=== PATIENT | female | born 1995 | race Caucasian/White ===

== ENCOUNTER 2017-09-06 17:40 | Outpatient (CLI) | payer OTHER ==
[~2017-09-06] VITALS: Ht 170.2 cm; Wt 107.4 kg
[2017-09-06] MEDS ORDERED: PREN-93 PO (17:53)
[2017-09-06 17:54] VITALS: BP 113/55; PULSE 139; RESP 22; Ht 170.2 cm; Wt 107.4 kg
--- NOTE | 2017-09-06 18:17 | RADRPT ---
PROCEDURE: US biophysical profile. CLINICAL INDICATION: Tachycardia. TECHNIQUE: Multiple sonographic images of the uterus were obtained. The images were revi ewed on a PACS workstation. COMPARISON: No prior studies are available for comparison. FINDINGS: There is a single live intrauterine gestation. heart rate is 163 beats per minute. The position is cephalic. The placenta is anterior grade II with no abruption or previa. The MARY is 16.1 cm. (Normal = 5-20 cm.) Breathing Movement: 2 Gross Body Movement: 2 Tone: 2 Qualitative Amniotic Fluid Volume: 2 TOTAL: 8 IMPRESSION: 1. The biophysical score is 8/8. RPTAT: QQ .Lucas Keller MD, MD Date Time Electronically viewed and signed by .Lucas Keller MD, on 09/06/2017 18:16 .R/
--- NOTE | 2017-09-06 18:31 | TRIAGE ---
OB Triage Datetime Report Generated by CPN: 09/06/2017 18:31 Datetime: 09/06/2017 18:18 Stage of : OB Triage Maternal Assessment Level of Consciousness: Fully Conscious Labor Evaluation Frequency: NONE Monitor Mode: External Resting Tone [place]: Relaxed Heart Rate FHR Baseline Rate: 165 Monitor Mode: External US Variability: Moderate 6-25 bpm Accelerations: 15X15 Decelerations: None Pain Assessment Pain Scale: 0 Pain Goal: 3 Vaginal Exam Membrane Status: Intact Vaginal Bleeding: None Datetime: 09/06/2017 17:51 Assessment Type: Triage Maternal Assessment Level of Consciousness: Fully Conscious DTR's/Clonus: DTRs 2+; No Clonus Headache: Denies Blurred Vision: No Respiratory Effort: Unlabored; Regular Rhythm; Equal Expansion Breath Sounds, Left: Clear and Equal Breath Sounds, Right: Clear and Equal Nausea/Vomiting: Denies RUQ Epigastric Pain: Denies Lower Extremities Edema: None Degree: None Upper Extremities Edema: None Degree: None Facial Edema: None Fall Risk Assessment History of Falling: (0) No Secondary Diagnosis: (0) No Ambulatory Aid: (0) Bedrest/Nurse Assist IV Therapy: (0) No Gait: (0) Normal/Bedrest/Immobile Mental Status: (0) Oriented to Own Ability Fall Score: 0 Fall Risk Score Definition: No Risk: No action required Datetime: 09/06/2017 17:50 Time of Arrival: 09/06/2017 17:30 EGA: 30.1 Arrived By: Ambulatory Arrived From: Home Chief Complaint: PT HERE C/O FEVER AND DFM Movement: Decreased Contractions: Denies/Absent Rupture of Membranes: Denies Vaginal Bleeding: None Vaginal Discharge: Denies Recent Sexual Intercouse: Denies Abdominal Trauma: Not Applicable Patient Complaints: None Time Provider Notified: 09/06/2017 18:00 Provider Notified: SIRI Initial Plan: EFM/BPP Datetime: 09/06/2017 17:48 Monitor Mode: External Monitor Mode: External US
[2017-09-06] MEDS ORDERED: AMOX500C2 PO (19:48)
[2017-09-06] MEDS ORDERED: ACET500C5 PO (19:48)
[2017-09-06] MEDS ORDERED: OSLT75C PO (19:48)
[2017-09-06] MEDS ORDERED: SODI126M NASAL (19:57)
--- NOTE | 2017-09-06 21:21 | CONS ---
Date/Time of Note Date/Time of Note DATE: 09/06/17 TIME: 21:11 Consultation Date/Type/Reason Admit Date/Time September 06, 2017 OB triage consult This patient is a 21 years old 2 para 1 with a previous section. Her estimated date of confinement is November 14, 2017 which makes her 30 weeks and 1 day today. She came in complaining of fever, cough, and flu type symptoms for 2 days. On examination she is a well-nourished well-developed patient. Her general vital signs appears to be normal except for temperature, her blood pressure was 113/55,, pulse rate 139, respiration 18,,, temperature was 103, and the oxygen saturation was 96% at room temperature Although her clinical picture was mostly upper respiratory tract infection however we did a workup on the in the fetus. Constitutional: No chills, No diaphoresis, No disoriented, No febrile, No improved, No no complaints, No other, No poor po, No requiring IVF, No requiring O2 Eyes: No discharge, No no complaints, No other, No pain, No redness, No visual change ENT: other (She did have evidence of upper respiratory tract infection), No bleeding, No congestion, No discharge, No dysphagia, No no complaints, No pain, No sore throat Cardiovascular: other (Chest was clear except for some area on the right .), No chest pain, No edema, No lightheadedness, No no complaints, No orthopenea , No palpitations, No paroxysmal nocturnal dyspnea Gastrointestinal: No blood, No constipation, No decreased appetite, No diarrhea , No flatus, No nausea, No no complaints, No other, No pain, No passing stool, No vomiting Genitourinary: other (Due to lack of any contractions pelvic exam was not performed), No bleeding, No discharge, No dysuria, No flank pain, No hematuria, No no complaints Musculoskeletal: No back pain, No bone/joint pain, No neck pain, No no complaints, No other, No restricted range of motion, No swelling Skin: other (Warm and sweaty), No bruising, No erythema, No laceration, No no complaints, No pruritis, No rash, No skin lesions Neurologic: other (Knee-jerk reflex was normal), No confusion, No dizziness, No focal-weakness, No headache, No no complaints , No seizure, No syncope Additional Comments ,. On ultrasound study ,her biophysical profile was 8/8 and the amniotic fluid index was 16 cm With these finding and evidence of upper respiratory tract infection,she was cleared Ob banks and was given an option to go down to emergency room for further workup Social History Smoking Status: Never smoker Exam/Review of Systems Vital Signs Vitals Vital Signs Date Time Temp Pulse Resp B/P Pulse Ox O2 Delivery O2 Flow Rate FiO2 09/06/17 17:54 103.0 139 22 113/55 96 Room Air SHANKAR HORNER MD Sep 06, 2017 21:21 SHANKAR HORNER MD Sep 06, 2017 21:21
== END 2017-09-06 18:40 | disposition home or self-care (01) ==
LOC: OBT 17:40 → L-D 17:41 → OBT 18:40
PROVIDERS: ATTEND Obstetrics & Gynecology
DX: O99.513 Diseases of the respiratory system complicating pregnancy, third trimester (principal); R50.9 Fever, unspecified; R05 Cough; O34.219 Maternal care for unspecified type scar from previous cesarean delivery; Z3A.30 30 weeks gestation of pregnancy
CPT/HCPCS: 76818; Z7500; G0463

== ENCOUNTER 2017-09-06 18:44 | Emergency (ER) | payer OTHER ==
[~2017-09-06] VITALS: Ht 170.2 cm; Wt 107.0 kg
[~2017-09-06 18:44] MED LIST: PREN-93 PO
[2017-09-06 19:24] VITALS: Ht 170.2 cm; Wt 107.0 kg
[2017-09-06] MEDS ORDERED: ACETAMINOPHEN 500 MG TAB PO STA (19:42)
[2017-09-06] MEDS ORDERED: OSLT75C PO (19:48)
[2017-09-06] MEDS ORDERED: AMOX500C2 PO (19:48)
[2017-09-06] MEDS ORDERED: ACET500C5 PO (19:48)
[2017-09-06] MEDS ORDERED: SODI126M NASAL (19:57)
[2017-09-06] MEDS ORDERED: SOD CHLORIDE 0.9% 1,000 ML IV ONE (20:30)
[2017-09-06] MEDS ORDERED: LEVALBUTEROL (NEB) 1.25 MG/0.5 ML AMP HHN ONE (21:00)
[2017-09-06 21:47] VITALS: BP 130/71; PULSE 133; RESP 18; TEMP 98.3
--- NOTE | 2017-09-06 23:17 | ERD ---
ER Documentation Chief Complaint Chief Complaint flu like symtoms x2 days, sore throat, fever HPI 21-year-old female who is about 30 weeks is complaining of fever, chills, headache and body ache since yesterday. Patient has a nonproductive cough. She also has ear pain bilaterally. States that she had purulent drainage from the right ear earlier today, and has decreased hearing fountain on the right. She took Tylenol at home for her symptoms, last dose was at 5 AM this morning. Patient also reports chest tightness. Her and son all have similar symptoms. Denies abdominal pain, vomiting, or diarrhea. Denies pelvic pain or vaginal bleeding. Patient had been cleared by OB triage before arrival in the ED. ROS All systems reviewed and are negative except as per history of present illness. Medications Home Meds Active Scripts Sodium Chloride (Saline Nasal Mist) 126 Ml Mist, 2 SPRAY NASAL Q2H Y for NASAL CONGESTION, #1 BOTTLE Prov:TR OWENS. [employer]ERIAL PHOTOGRAPH INTERPRETER 09/06/17 Amoxicillin* (Amoxicillin*) 500 Mg Cap, 500 MG PO TID for 10 Days, CAP Prov:TR OWENS. AERIAL PHOTOGRAPH INTERPRETER 09/06/17 Acetaminophen* (Tylophen*) 500 Mg Capsule, 1 CAP PO Q6H Y for PAIN AND OR ELEVATED TEMP, #20 CAP Prov:TR OWENS. AERIAL PHOTOGRAPH INTERPRETER 09/06/17 Oseltamivir Phosphate* (Tamiflu*) 75 Mg Capsule, 75 MG PO BID for 5 Days, CAP Prov:TR OWENS. AERIAL PHOTOGRAPH INTERPRETER 09/06/17 Reported Medications Vit No.124/Iron/FA ( Vitamin Tablet) 1 Each Tablet, 1 EACH PO DAILY, TAB 09/06/17 Allergies Allergies: Coded Allergies: No Known Allergy (Unverified , 09/24/14) PMhx/Soc Medical and Surgical Hx: pt denies Medical Hx, pt denies Surgical Hx Hx Alcohol Use: No Hx Substance Use: No Hx Tobacco Use: No Smoking Status: Never smoker Physical Exam Vitals Vital Signs Date Time Temp Pulse Resp B/P Pulse Ox O2 Delivery O2 Flow Rate FiO2 09/06/17 21:47 98.3 133 18 130/71 97 Room Air 09/06/17 20:45 133 20 95 21 09/06/17 19:24 101.2 156 22 112/53 97 Physical Exam General: Well-developed, well-nourished, conscious and coherent, in no distress Skin: Warm and dry without rash, good texture and turgor Head: Normocephalic without evidence of trauma Eyes: Sclera and conjunctivae normal; pupils equal, round, and reactive to light; extraocular movements are intact Ears: Purulent discharge noted in bilateral ear canals, right TM perforated. Unable to visualize left TM. Nose/Face: Nasal mucosa erythematous swollen with clear rhinorrhea. Mouth/throat: Mucous membranes are moist. Posterior pharynx clear without erythema or exudates Neck: Supple without meningismus or adenopathy. Carotids are equal. Trachea midline. No bruits or JVD Chest: Normal AP diameter. Good expansion without retractions. Nontender. Wheezing noted in the left lower lobe, and right upper lobe, with good tidal volume Heart: Regular rate and rhythm. No murmur, rub, or gallops heard Abdomen: Soft and nontender without masses, guarding, or rebound. Bowel sounds are active. No hepatosplenomegaly Back: Without spinal or CVA tenderness Pelvis: Nontender to palpation and stable to compression Extremities: Full range of motion. Good strength bilaterally. No clubbing, cyanosis, or edema. Peripheral pulses are intact. Sensation intact Neuro: Alert and oriented 4, GCS 15. Cranial nerves grossly intact. Motor and sensory exams nonfocal. Moves all extremities. Speech clear. Gait normal Results 24 hrs Current Medications Medications (Trade) Dose Ordered Sig/Doug Route PRN Reason Start Time Stop Time Status Last Admin Dose Admin Acetaminophen 500 mg 500 mg ONCE STAT PO 09/06/17 19:42 09/06/17 19:44 DC 09/06/17 19:52 Sodium Chloride (NS) 1,000 ml @ 1,000 mls/hr Q1H ONCE IV 09/06/17 20:30 09/06/17 21:29 DC 09/06/17 20:36 Levalbuterol (Xopenex Neb) 2.5 mg ONCE ONCE HHN 09/06/17 21:00 09/06/17 21:01 DC 09/06/17 20:45 Procedures/MDM 21-year-old female who is approximately 30 weeks presented to ED with flulike symptoms. She was tested positive for influenza A. Patient given Tylenol in the ED for fever reduction. Xopenex nebulizer given to the patient. After Xopenex, repeat exam revealed completely clear lung sounds. I have low suspicion for pneumonia or bronchitis. Patient's heart rate also reduced from 150s on arrival to 129. Patient is also noted to have otitis media with ruptured tympanic membrane. No sign of mastoiditis. Patient appears well, stable for discharge and outpatient management. Medical decision making shared with patient and family. Education provided to patient and family. Patient and family expressed understanding of the plan. Medications on discharge: Tamiflu, Tylenol, saline nasal spray, amoxicillin. Follow-up: Primary care provider in 2-3 days or return to ED if worse. Disclaimer: Inadvertent spelling and grammatical errors are likely due to EHR/ dictation software use and do not reflect on the overall quality of patient care. Also, please note that the electronic time recorded on this note does not necessarily reflect the actual time of the patient encounter. Departure Diagnosis: Primary Impression: Influenza Additional Impression: Otitis media with rupture of tympanic membrane Condition: Stable Patient Instructions: Influenza (Flu) and , Otitis Media, Abx Tx ( Adult) Referrals: [facility] YOU HAVE RECEIVED A MEDICAL SCREENING EXAM AND THE RESULTS INDICATE THAT YOU DO NOT HAVE A CONDITION THAT REQUIRES URGENT TREATMENT IN THE EMERGENCY DEPARTMENT. FURTHER EVALUATION AND TREATMENT OF YOUR CONDITION CAN WAIT UNTIL YOU ARE SEEN IN YOUR DOCTORS OFFICE WITHIN THE NEXT 1-2 DAYS. IT IS YOUR RESPONSIBILITY TO MAKE AN APPOINTMENT FOR FOLOW-UP CARE. IF YOU HAVE A PRIMARY DOCTOR --you should call your primary doctor and schedule an appointment IF YOU DO NOT HAVE A PRIMARY DOCTOR YOU CAN CALL OUR PHYSICIAN REFERRAL HOTLINE AT IF YOU CAN NOT AFFORD TO SEE A PHYSICIAN YOU CAN CHOSE FROM THE FOLLOWING [facility] [address] [facility] [address] [facility] [facility] [address] [facility]. [facility] [address] [facility] [address] [facility] [facility] [employer] SM[employer] PLATE SHEAR OPERATOR [place] [address] [facility] [address] [place] [address] OFFICE FAX , [facility] [address] [place] [address] [address] [facility] [address] [place] [address] DR HORNER, [facility] [address], [address] [place] [address] DR GONZALEZ [facility] [address] [facility] [place] [address] [facility] [address] [place] [address] [phone] [address] [facility] [address] - DR MAR CHANG [address], [place] [address] MALORIE RANGELO [address] [facility]. [address], [place] [address] [address] [facility] [address] [place], [place] [address] Additional Instructions: FOLLOW UP WITH YOUR PRIMARY CARE PHYSICIAN TOMORROW.Return to this facility if you are not improving as expected. TR OWENS NP Sep 06, 2017 23:17
== END 2017-09-06 22:34 | disposition home or self-care (01) ==
LOC: FTE 18:44
DX: J10.1 Influenza due to other identified influenza virus with other respiratory manifestations (principal); H66.43 Suppurative otitis media, unspecified, bilateral; H72.91 Unspecified perforation of tympanic membrane, right ear
CPT/HCPCS: 87400; 94664; J7030; Z7502; Z7610

== ENCOUNTER 2017-11-08 14:00 | Inpatient (IN) | END 2017-11-11 16:07 | disposition home or self-care (01) | DRG 766 ==